=== PATIENT | female | born 1990 | race African-American/Black ===

== ENCOUNTER 2017-04-02 10:30 | Emergency (ER) | payer SELFPAY ==
[2017-04-02 10:35] VITALS: RESP 16; TEMP 98.4
[2017-04-02] MEDS ORDERED: ONDANSETRON 4 MG/2 ML VIAL ONE (10:40)
[2017-04-02] MEDS ORDERED: HYDROmorphONE/DILAUDID 1 MG/ML SYR ONE (10:41)
[2017-04-02] MEDS ORDERED: ONDANSETRON 4 MG/2 ML VIAL IVP ONE (10:44)
[2017-04-02] MEDS ORDERED: HYDROmorphONE/DILAUDID 1 MG/ML SYR IVP ONE (10:45)
[2017-04-02] MEDS ORDERED: NS 1,000 ML IV ONE (10:51)
[2017-04-02 10:57] LABS: % IMMATURE GRANULYOCYTES 0.2 % (0.0-1.1); ABSOLUTE IMMATURE GRANULOCYTES 0.02 10^3/uL (0.00-0.10); ADD DIFF? NO; ADD MORPH? NO; ADD SCAN? NO; ATYPICAL LYMPHOCYTE FLAG 30 (0-99); FRAGMENT RBC FLAG 0 (0-99); HEMATOCRIT 45.9 % (38.0-47.0); HEMOGLOBIN 15.9 g/dL (12.6-16.3); LEFT SHIFT FLG 0 (0-99); LIPEMIA HEMOLYSIS FLAG 90 (0-99); MEAN CELL HEMOGLOBIN CONCENTR. 34.6 g/dL (32.4-36.7); MEAN CELL VOLUME 86.6 fL (81.5-99.8); PLATELET CLUMPS FLAG 0 (0-99); PLATELET COUNT 288 10^3/uL (150-400); RED CELL DISTRIBUTION WIDTH 13.4 % (11.5-15.2)
--- NOTE | 2017-04-02 10:57 | EDPHY ---
H & P Time Seen by Provider: 04/02/17 10:39 HPI/ROS: HPI Abdominal pain. 26-year-old female by private vehicle with her . This patient complains of right-sided abdominal pain, mostly right mid to lower quadrant pain described as sharp and aching, worsening over the last 3 days. No diarrhea. She has had nausea but no vomiting. Last bowel movement was 5 days ago. He reports some mild increased frequency and discomfort with urination. She has not had a fever. Last meal was last night. Previous abdominal surgical history includes cholecystectomy about 3 years ago. ROS: Constitutional: No fever, no chills. No weakness. Eyes: No discharge. No changes in vision. ENT: No sore throat. No nasal congestion or rhinorrhea. Respiratory: No cough. No shortness of breath. Cardiac: No chest pain, no palpitations. Gastrointestinal: As above. Genitourinary: No hematuria. No dysuria or increased frequency with urination. Musculoskeletal: No back pain. No neck pain. No myalgias or arthralgias. Skin: No rashes. Neurological: No headache. No focal weakness or altered sensation. Past medical history: As above. Also includes 3 miscarriages. Social history: Nonsmoker. No alcohol. Here with her . Physical Exam: General Appearance: Alert, she appears uncomfortable. This patient is responding to questions appropriately and in full sentences. This patient appears well-hydrated and well-nourished. Eyes: Pupils equal and round no pallor or injection. No lid edema, erythema or injection. Respiratory: There are no retractions, lungs are clear to auscultation with good air movement bilaterally. Cardiovascular: Regular rate and rhythm. No murmur. Gastrointestinal: Abdomen is soft with right mid abdominal tenderness on palpation as well as right lower quadrant tenderness on palpation, no masses, bowel sounds normal. No focal tenderness at McBurney's point. No Leggett sign. Neurological: Motor sensory function is grossly intact. Cranial nerves are normal. Gait is normal. Skin: Warm and dry, no rashes. Musculoskeletal: Neck is supple and nontender. Extremities are symmetrical. All joints range without pain or impingement. Psychiatric: No agitation. No depression. Database: EKG: Imaging: CT abdomen and pelvis with IV contrast: Some fluid noted in the pelvis. Appendix appears normal. Some biliary dilatation likely secondary to cholecystectomy. Moderate stool in the colon. Otherwise unremarkable study. Results were discussed with staff radiologist Dr. Luiz Perry. Procedures: Emergency department course: IV placed. She was placed on a monitor. She was made NPO. She was started on IV normal saline with 1 L to be given over the next hour. She was initially given 0.5 mg of IV hydromorphone and 4 mg of IV Zofran. I discussed CT imaging to evaluate for surgical etiology such as appendicitis versus volvulus. She consents. 11:05 a.m., patient complains of continued pain. She was given an additional 0.5 mg of IV hydromorphone. She has no history of renal problems or contraindications to NSAIDs. She was given 30 mg of IV Toradol. 1:15 p.m., patient re-evaluated, resting comfortably at this time. Results of her CT scan emergency department workup were discussed in detail with her and her boyfriend. Repeat abdominal exam she is soft, nontender nondistended. She reports feeling much better. She feels comfortable going home at this time. I feel she is safe for discharge. I will send her home with a bottle of magnesium citrate to treat possible constipation as a source of her pain. I also discussed follow-up with primary care physician. I will give her several referral options. Return to emergency department precautions were discussed in detail with her. All of her questions were answered. She was discharged from the emergency department in good condition with her boyfriend who is driving. Differential Diagnosis: The differential diagnosis on this patient includes but is not limited to appendicitis, hepatitis, volvulus, colitis, constipation. This represents a partial list of diagnoses considered. These considerations are based on history , physical exam, past history, reassessment and diagnostic testing. Smoking Status: Current every day smoker Constitutional: Initial Vital Signs Temperature (C) 36.9 C 04/02/17 10:32 Heart Rate 98 04/02/17 10:32 Respiratory Rate 16 04/02/17 10:32 Blood Pressure 151/99 H 04/02/17 10:32 O2 Sat (%) 94 04/02/17 10:32 O2 Delivery Mode Room Air Allergies/Adverse Reactions: No Known Allergies Allergy (Unverified 04/02/17 10:35) Medical Decision Making - Diagnostics Imaging Results: Imaging Impressions Abdomen CT 04/02/17 10:52 Impression: 1. Small volume of free fluid, greater than typically seen for physiologic fluid. 2. Normal appearance of visualized portions of the appendix. 3. Moderate stool in the proximal colon 4. Moderate basilar atelectasis. 5. Biliary dilatation likely related to radical cystectomy. 6. Nonspecific mild prominence of the pancreatic duct. 7. Additional findings as above. Findings discussed with Nella Forbes M.D. on April 02, 2017 at 12:36 p.m. - Data Points Laboratory Results: Laboratory Results 04/02/17 10:45 04/02/17 10:45 04/02/17 04/02/17 04/02/17 10:50 10:45 10:45 WBC RBC Hgb Hct MCV MCH MCHC RDW Plt Count MPV Neut % (Auto) Lymph % (Auto) Lea % (Auto) Eos % (Auto) Baso % (Auto) Nucleat RBC Rel Count Absolute Neuts (auto) Absolute Lymphs (auto) Absolute Monos (auto) Absolute Eos (auto) Absolute Basos (auto) Absolute Nucleated RBC Immature Gran % Immature Gran # Sodium 140 mEq/L mEq/L (134-144) Potassium 3.8 mEq/L mEq/L (3.5-5.2) Chloride 109 mEq/L mEq/L (97-110) Carbon Dioxide 22 mEq/l mEq/l (22-31) Anion Gap 9 mEq/L mEq/L (8-16) BUN 9 mg/dL mg/dL (7-23) Creatinine 0.7 mg/dL mg/dL (0.6-1.0) Estimated GFR > 60 Glucose 89 mg/dL mg/dL (70-100) Calcium 9.8 mg/dL mg/dL (8.5-10.4) Total Bilirubin 0.7 mg/dL mg/dL (0.1-1.4) Conjugated Bilirubin 0.2 mg/dL mg/dL (0.0-0.5) Unconjugated Bilirubin 0.5 mg/dL mg/dL (0.0-1.1) AST 22 IU/L IU/L (14-46) ALT 33 IU/L IU/L (9-52) Alkaline Phosphatase 52 IU/L IU/L (38-126) Total Protein 7.7 g/dL g/dL (6.3-8.2) Albumin 4.2 g/dL g/dL (3.5-5.0) Lipase 57.0 IU/L IU/L (23-300) Beta HCG, Qual NEGATIVE Urine Color YELLOW Urine Appearance HAZY Urine pH 5.0 (5.0-7.5) Ur Specific Pana 1.025 (1.002-1.030) Urine Protein NEGATIVE (NEGATIVE) Urine Ketones NEGATIVE (NEGATIVE) Urine Blood NEGATIVE (NEGATIVE) Urine Nitrate NEGATIVE (NEGATIVE) Urine Bilirubin NEGATIVE (NEGATIVE) Urine Urobilinogen NEGATIVE EU EU (0.2-1.0) Ur Leukocyte Esterase NEGATIVE (NEGATIVE) Urine RBC 1-3 /hpf /hpf (0-3) Urine WBC 1-3 /hpf /hpf (0-3) Ur Epithelial Cells TRACE /lpf /lpf (NONE-1+) Urine Mucus 1+ /lpf /lpf (NONE-1+) Urine Sperm PRESENT /hpf H /hpf (NONE SEEN) Urine Glucose NEGATIVE (NEGATIVE) 04/02/17 10:45 WBC 8.09 10^3/uL 10^3/uL (3.80-9.50) RBC 5.30 10^6/uL 10^6/uL (4.18-5.33) Hgb 15.9 g/dL g/dL (12.6-16.3) Hct 45.9 % % (38.0-47.0) MCV 86.6 fL fL (81.5-99.8) MCH 30.0 pg pg (27.9-34.1) MCHC 34.6 g/dL g/dL (32.4-36.7) RDW 13.4 % % (11.5-15.2) Plt Count 288 10^3/uL 10^3/uL (150-400) MPV 9.0 fL fL (8.7-11.7) Neut % (Auto) 52.0 % % (39.3-74.2) Lymph % (Auto) 32.3 % % (15.0-45.0) Lea % (Auto) 9.8 % % (4.5-13.0) Eos % (Auto) 4.8 % % (0.6-7.6) Baso % (Auto) 0.9 % % (0.3-1.7) Nucleat RBC Rel Count 0.0 % % (0.0-0.2) Absolute Neuts (auto) 4.21 10^3/uL 10^3/uL (1.70-6.50) Absolute Lymphs (auto) 2.61 10^3/uL 10^3/uL (1.00-3.00) Absolute Monos (auto) 0.79 10^3/uL 10^3/uL (0.30-0.80) Absolute Eos (auto) 0.39 10^3/uL 10^3/uL (0.03-0.40) Absolute Basos (auto) 0.07 10^3/uL 10^3/uL (0.02-0.10) Absolute Nucleated RBC 0.00 10^3/uL 10^3/uL (0-0.01) Immature Gran % 0.2 % % (0.0-1.1) Immature Gran # 0.02 10^3/uL 10^3/uL (0.00-0.10) Sodium Potassium Chloride Carbon Dioxide Anion Gap BUN Creatinine Estimated GFR Glucose Calcium Total Bilirubin Conjugated Bilirubin Unconjugated Bilirubin AST ALT Alkaline Phosphatase Total Protein Albumin Lipase Beta HCG, Qual Urine Color Urine Appearance Urine pH Ur Specific Pana Urine Protein Urine Ketones Urine Blood Urine Nitrate Urine Bilirubin Urine Urobilinogen Ur Leukocyte Esterase Urine RBC Urine WBC Ur Epithelial Cells Urine Mucus Urine Sperm Urine Glucose Medications Given: Discontinued Medications Hydromorphone HCl (Dilaudid) 0.5 mg IVP EDNOW ONE Stop: 04/02/17 10:46 Last Admin: 04/02/17 10:45 Dose: 0.5 mg Sodium Chloride (Ns) 1,000 mls @ 0 mls/hr IV EDNOW ONE; Wide Open PRN Reason: Protocol Stop: 04/02/17 10:52 Last Admin: 04/02/17 10:59 Dose: 1,000 mls Ketorolac Tromethamine (Toradol) 30 mg IVP EDNOW ONE Stop: 04/02/17 11:06 Last Admin: 04/02/17 11:08 Dose: 30 mg Ondansetron HCl (Zofran) 4 mg IVP EDNOW ONE Stop: 04/02/17 10:45 Last Admin: 04/02/17 10:46 Dose: 4 mg Promethazine HCl (Phenergan) 6.25 mg IVP ONCE ONE Stop: 04/02/17 11:51 Last Admin: 04/02/17 11:51 Dose: 6.25 mg Departure - Departure Disposition: Home, Routine, Self-Care Clinical Impression: Abdominal pain, Constipation Condition: Good Instructions: Abdominal Pain (ED), Constipation (ED), High Fiber Diet (ED) Additional Instructions: Read and follow provided instructions. Follow-up with your primary care physician in 1-2 days for re-evaluation. I will provide you with several referrals. Magnesium citrate: Drink contents of bottle at home near bathroom to treat constipation. Return to the emergency department for worsening pain, vomiting, fever or other serious concerns. Referrals: Katalina Martinez MD [Medical Doctor] - As per Instructions Alesia Tam MD [[facility] [place] - As per Instructions Peri Collier MD [Medical Doctor] - As per Instructions
[2017-04-02] MEDS ORDERED: KETOROLAC 30 MG/1 ML SDV IVP ONE (11:05)
[2017-04-02 11:17] LABS: ALANINE AMINOTRANSFERASE 33 IU/L (9-52); ALBUMIN 4.2 g/dL (3.5-5.0); ALKALINE PHOSPHATASE 52 IU/L (38-126); ANION GAP 9 mEq/L (8-16); ASPARTATE AMINOTRANSFERASE 22 IU/L (14-46); BILIRUBIN,TOTAL 0.7 mg/dL (0.1-1.4); BILIRUBIN-CONJUGATED 0.2 mg/dL (0.0-0.5); BILIRUBIN-UNCONJUGATED 0.5 mg/dL (0.0-1.1); CALCIUM 9.8 mg/dL (8.5-10.4); CARBON DIOXIDE 22 mEq/l (22-31); CHLORIDE 109 mEq/L (97-110); CREATININE 0.7 mg/dL (0.6-1.0); GLOMERULAR FILTRATION RATE > 60; GLUCOSE 89 mg/dL (70-100); POTASSIUM 3.8 mEq/L (3.5-5.2); SODIUM 140 mEq/L (134-144); TOTAL PROTEIN 7.7 g/dL (6.3-8.2)
[2017-04-02 11:37] LABS: COLOR YELLOW; LEUKOCYTE ESTERASE,URINE NEGATIVE (NEGATIVE); NITRITE,URINE NEGATIVE (NEGATIVE)
[2017-04-02] MEDS ORDERED: IOPAMIDOL (ISOVUE-300) 100 ML BTL ONE (11:45)
[2017-04-02] MEDS ORDERED: PROMETHAZINE HCL 25 MG/ML INJ ONE (11:48)
[2017-04-02 11:50] LABS: MUCUS 1+ /lpf (NONE-1+)
[2017-04-02] MEDS ORDERED: PROMETHAZINE HCL 25 MG/ML INJ IVP ONE (11:50)
[2017-04-02] MEDS ORDERED: MAGNESIUM CITRATE 300 ML BOTTLE PO ONE (13:32)
[2017-04-02 13:40] VITALS: BP 126/86; PULSE 84; O2SAT 92
== END 2017-04-02 13:39 | disposition home or self-care (01) ==
DX: K59.00 Constipation, unspecified (principal); E86.9 Volume depletion, unspecified; F17.200 Nicotine dependence, unspecified, uncomplicated; Z90.49 Acquired absence of other specified parts of digestive tract
CPT/HCPCS: 96374; J1170; J1885; J2405; J2550; Q9967